=== PATIENT | female | born 1965 | race Caucasian/White ===

== ENCOUNTER 2017-12-13 05:29 | Inpatient (IN) | payer OTHER ==
[2017-12-13] VITALS (11 sets, daily range): BP systolic 110–140; BP diastolic 46–69
[~2017-12-13] VITALS: Ht 170.2 cm; Wt 147.4 kg
--- NOTE | ~2017-12-13 | O ---
[facility] [place] [address] OPERATIVE REPORT Name: GABBIE QUEZADA Room #: 418-P [facility] IN M.R.#: [id number] Admission: 12/13/17 Attend Phys: Amita Hogan MD, Discharge: Date of : 61 Report #: [id number] THIS REPORT FOR: //name// CC: Miryam Hogan DATE OF SERVICE: 12/13/2017 PREOPERATIVE DIAGNOSES: 1. Morbid obesity. 2. Body mass index of 51.37. 3. Essential hypertension. 4. History of hyperglycemia. 5. Snoring disorder. 6. Lumbago. 7. Bilateral lower extremity joint pain with arthritis. POSTOPERATIVE DIAGNOSES: 1. Morbid obesity. 2. Body mass index of 51.37. 3. Essential hypertension. 4. History of hyperglycemia. 5. Snoring disorder. 6. Lumbago. 7. Bilateral lower extremity joint pain with arthritis. 8. Type 3 paraesophageal hernia. PROCEDURES PERFORMED: 1. Laparoscopic sleeve gastrectomy. 2. Laparoscopic suture repair of a type 3 paraesophageal hernia with cruroplasty. 3. A thorough esophagogastroduodenoscopy (EGD). SURGEON: Amita Hogan M.D. VOCATIONAL EDUCATION TEACHER: Yong Hernandes M.D. ANESTHESIA: General endotracheal anesthesia. ESTIMATED BLOOD LOSS: Minimal (less than 5 mL). COMPLICATIONS: None appreciated. SPECIMENS: Gastric sleeve resection specimen to pathology. INDICATIONS: The patient is a 52-year-old morbidly obese female who [facility] [address] [place] [address] OPERATIVE REPORT Name: GABBIE QUEZADA Room #: 418-P [facility] IN .R.#: [id number] Admission: 12/13/17 Attend Phys: Amita Hogan MD, Discharge: Date of : 61 Report #: [id number] has been seen for her desire for weight loss surgery as she has had a long history of obesity with numerous weight loss attempts, all to no avail. The patient has greater than 150 pounds over her ideal body weight, with comorbid conditions of high blood pressure, GERD, low back pain, lower extremity joint pain, snoring disorder with likely sleep apnea and chronic fatigue as well as arthritis of the knees and significant immobility that are all directly related to her obesity. The patient has been seen by her primary care physician as well as by psychology and the dietitians, who have all cleared her for bariatric surgery as well as indicating that it is medically necessary for long-term weight loss and assistance with her comorbid conditions. The patient has undergone physician-directed diet and exercise attempts under my direction for the past several months, with no substantial weight loss thus far. As such, indication was for the above-mentioned procedures with intraoperative findings of the superior one-third of her stomach, including the gastroesophageal juncture and the fundus of the stomach within the distal mediastinum, consistent with a type 3 paraesophageal hernia which required definitive management as well. DESCRIPTION OF PROCEDURE: After explaining the risks, benefits and alternatives of the procedure with the patient in detail in the preoperative holding area and obtaining written consent, the patient was brought to the operating room and placed supine on the operating room table. After conducting a thorough timeout procedure, verifying correct patient and procedure, the patient was given general endotracheal anesthesia. Once adequate anesthesia was obtained, her SCDs were hooked up to pneumatic compression device and she was given a preoperative dose of antibiotics in line with the SCIP protocol. The patient's abdomen was now prepped and draped in the standard surgical sterile fashion after positioning her in the low lithotomy position with her legs in the Yellofin stirrups. I began the procedure by performing a thorough EGD. The Fareye upper endoscope was used to intubate the oropharynx. This was traversed down into the esophagus. The scope was advanced into the second portion of the duodenum, where slow careful withdrawal of the scope showed no evidence of duodenitis, gastritis, esophagitis, mass lesions or ulcerations. Retroflexion view of the scope within the gastric lumen showed a hiatal hernia. The scope was straightened out with its tip at the level of pylorus, where it was taped into position. The stomach was fully desufflated and I proceeded to enter the operative field sterilely. A 5 mL of 0.5% Marcaine with epinephrine were used to anesthetize the skin 3 cm cephalad to the umbilicus and 1 cm to the patient's left. A #15 bladed scalpel was used to create a small skin renay at this location. A 5-mm Visiport was placed over 0-degree 5-mm laparoscope and was introduced through this incision site. Once intra-abdominal placement was verified visually, the obturator for the trocar and laparoscope were both removed and the abdomen was insufflated to 15 mmHg using carbon dioxide gas. The laparoscope was changed to a 5-mm 30-degree laparoscope, which was reintroduced through this trocar. The entire abdomen was evaluated to ensure no injury upon entry. I now proceeded to place additional working trocars. A [address] [address] OPERATIVE REPORT Name: GABBIE QUEZADA Room #: 418-P [facility] IN Patty#: [id number] Admission: 12/13/17 Attend Phys: Amita Hogan MD, Discharge: Date of : 61 Report #: [id number] 15-mm port was placed in the right upper abdomen approximately 7 cm cephalad to my initially placed port and 5 cm to the patient's right; an additional 5-mm port was placed in the left mid abdomen and midclavicular line, 5 cm lateral to my initial port and a final 5-mm port was placed in the extreme left lateral flank. All three additional trocars were placed under direct vision after anesthetizing the skin at each location with 5 mL of 0.5% Marcaine with epinephrine, and I had created appropriately sized skin nicks using #15 bladed scalpel. I now anesthetized the skin in the subxiphoid location using 5 mL of 0.5% Marcaine with epinephrine and created a small skin renay at that location as well. I then used the 5 mm obturator to penetrate the fascia at that level and maneuvered the Aide liver retractor through this defect, where it was positioned up under the left lobe of the liver and was held up against the posterior aspect of the anterior abdominal wall. We now had complete access to the stomach and hiatal regions and saw evidence of a type 3 paraesophageal hernia with the gastroesophageal juncture and the fundus of the stomach contained within the distal mediastinum. As such, it was going to be necessary to perform definitive management of this and the left midclavicular 5-mm port was upsized to a 12-mm port under direct vision after extending the incision appropriately. The patient was now placed in steep reverse Trendelenburg position. We started our dissection after identifying our landmarks. The vein of Anderson was identified overlying the pylorus. I measured 4 cm proximal to this location and began taking down the short gastric arteries from this location all the way up to the greater curvature of the stomach using Harmonic scalpel for hemostasis. Once we arrived upon the left dorinda, we applied inferior traction on the stomach to reduce the paraesophageal hernia and continued taking down short gastric arteries until we identified the base of the left dorinda, which I dissected anteriorly up. I now elevated the stomach anteriorly and opened the pars flaccida using Harmonic scalpel to identify the base of the right dorinda. I dissected posteriorly at this juncture as well and carried out an extensive mediastinal dissection, carrying the dissection as far cephalad as possible in the mediastinum to take down all adhesions in the mediastinum that would attempt to cause retraction of the stomach and esophageal tissues back up in the mediastinum inappropriately. Now that I had completed my dissection, the stomach was elevated and posterior gastric attachments were taken down, ensuring that we were well away from the posterior aspect of the stomach as well as the anterior aspect of the pancreas, so as to prevent injury from thermal spread. Now that I had 2 cm of intra-abdominal esophagus, I proceeded to repair the type 3 paraesophageal hernia using several sutures of 0 Surgidac on the EndoStitch device. Two sutures were placed posteriorly and one was placed anteriorly so as not to distort the angle of entry into the abdomen too substantially. This brought the crura closed to where it was snug, but not tight to the esophagus. This recreated the slit valve aspect of the lower esophageal sphincter complex. Photodocumentation of this repair was taken and provided to the patient and the permanent medical record. [facility] [address] [place] [address] OPERATIVE REPORT Name: GABBIE QUEZADA Room #: 418-P [facility] IN M.R.#: [id number] Admission: 12/13/17 Attend Phys: Amita Hogan MD, Discharge: Date of : 61 Report #: [id number] Now that we had repaired the hiatal defect from the paraesophageal hernia and had fully mobilized the stomach, we started the sleeve gastrectomy portion of the procedure. The EGD scope was positioned to run along the lesser curvature of the stomach. The Albee 60-mm stapler with a black load utilizing Enciso's Jennifer-Strip buttressing material placed over it, it was entered into the abdomen through the 15 mm port. This first firing started at the location of 4 cm proximal to the pylorus and was fired right along, but not extremely tight to the scope, so as not to cause stricturing, especially at the incisura. An additional firing of another black load, again utilizing Enciso's Jennifer-Strip buttressing material, was carried out following the scope as a 34-Upper Sorbian bougie. Five additional firings of green loads, all utilizing Enciso's Jennifer-Strip buttressing material, were carried out following the scope as a bougie all the way up to the left dorinda until the stomach was completely transected. This left an excellently oriented sleeve of gastric remnant with complete hemostasis. There was only slight oozing at the most distal aspect of the staple line by the first firing of the stapler and as such, a laparoscopic clip healthcare network consultant was used to maintain hemostasis to this location. The resection specimen was placed in the right upper quadrant for future retrieval and the staple line was evaluated again. There was no twisting to the sleeve whatsoever and we had hemostasis. A 10 mL of Tisseel on the [employer]ient Technologieslos[employer]ay device was now used to coat the entirety of the staple line with fibrin glue. While this was drying, the resection specimen was grasped and removed out of abdomen through the 15-mm trocar under direct vision. I then placed fascial closing sutures around the 15 mm and 12 mm fascial incisions using 0 PDS suture on a Mark-Porter needle under direct vision. Neither were tied down at this juncture, but they were tagged with hemostats and the trocars were placed under direct vision. Now that the Tisseel was dry, normal saline was instilled into the upper abdomen and the EGD scope was reactivated and used to slowly withdraw to evaluate the staple line from the inside to ensure hemostasis and we saw no bleeding whatsoever. Upon doing so, we were able to gently insufflate the sleeved stomach, which was held under normal saline and no bubbles were seen, thereby signifying a negative leak test. The scope was used to desufflate the stomach. It was removed and passed off the field and I reentered the operative field once again. Normal saline was suctioned out of the abdomen and it ran clear throughout with no bleeding whatsoever. The Aide liver retractor was now removed under direct vision. The liver was healthy and uninjured. The 0 PDS sutures were now tied down under direct vision after removing the respective trocars and reducing the insufflation pressure to 5 mmHg. This was done under direct vision to ensure I did not catch a loop of bowel or omentum in my suture repair. The abdomen was now fully desufflated. All remaining trocars were removed under direct vision. A 4-0 Monocryl was used in a standard subcuticular fashion for all skin incisions and Dermabond glue was applied to all skin wounds. The corner of the resection specimen had been removed. It was trimmed away and normal saline was passively instilled into the resection specimen, [address] [address] OPERATIVE REPORT Name: PILARGABBIE OROZCO MICHELLE Room #: 418-P [facility] IN M.R.#: [id number] Admission: 12/13/17 Attend Phys: Amita Hogan MD, Discharge: Date of : 61 Report #: [id number] yielding 1500 mL in the resection specimen itself. At the end of the procedure, all instrument, needle and sponge counts were correct. The patient tolerated the procedure without incident, was awakened in the operating room and transitioned to the recovery room in stable condition, with no apparent complications. <ELECTRONICALLY SIGNED> By: Amita Hogan MD, FACS 12/13/17 1320 [id number] [id number] Amita Hogan MD, FACS /nt
--- NOTE | ~2017-12-13 | S ---
[facility] [place] [address] SURGICAL PATH RPT PROCEDURE Name: GABBIE QUEZADA Room #: 418-P ADM IN M.R.#: [id number] Admission: 12/13/17 Date of : 61 Discharge: Report #: [id number] Path Case #: [id number] PATHOLOGY REPORT COLLECTION DATE: 12/13/2017 RECEIVED DATE: 12/13/2017 SUBMITTING PHYS: Dr. Amita Hogan OTHER PHYS: Dr. Miryam Frye SPECIMEN(S) RECEIVED: A.Gastric sleeve * * * * * * * * * * * * FINAL DIAGNOSIS: Gastric sleeve, partial sleeve gastrectomy: - Mild chronic inflammation. - Negative for intestinal metaplasia or atrophy. (IUV:mgr; 12/14/2017) PATHOLOGIST: Samira Fitzpatrick M.D. REPORT ELECTRONICALLY SIGNED BY: Samira Fitzpatrick M.D. DATE/TIME: 12/14/2017 14:51 * * * * * * * * * * * * GROSS PATHOLOGY: The specimen is received in formalin, labeled "Gabbie Quezada, gastric sleeve". Received is a partial gastrectomy specimen with a stapled margin of resection measuring 19.4 x 6.0 cm in greatest dimensions. The serosal surface is pink-pandey, smooth, and shiny. Opening the specimen reveals a pink-pandey pandey mucosa displaying is normal architectural folds. No polyps or mass lesions identified. The specimen is submitted representatively in cassettes A1-A3. (SDY; 12/13/2017) CLINICAL HISTORY: Morbid obesity INITIAL CPT CODE(S): A; 19560 Professional services performed by [facility] at [facility] [address] [facility] [place] [address] Technical services performed by [facility] at [address] [place] [id number]. [facility] [address] [place] [address] SURGICAL PATH RPT PROCEDURE Name: GABBIE QUEZADA MICHELLE Room #: 418-P ADM IN M.R.#: [id number] Admission: 12/13/17 Date of : 61 Discharge: Report #: [id number] Path Case #: [id number] [facility] [address] [address] PHONE: [phone] DIRECTOR: Lasha Scott M.D. * * * END OF REPORT * * *
[~2017-12-13 05:29] MED LIST: ASPIR 8181 MG PO; FLEXERIL PO; HYDROCODONE-AP1 EAC6 PO; IBUPROFEN 800800 M1 PO; LASIX 40 MG TAB40 M2 PO; LISINOPRIL20 MG PO; MULTIVITAMINS1 EAC7 PO; POTASSIUM20 PO; PROTONIX40 M1 PO; SYNTHROID175 MCG PO; TRAMADOL 50 MG50 MG PO; VITAMIN B-12500 MCG PO; WELLBUTRIN SR150 MG PO
[2017-12-13] MEDS ORDERED: HYDROCODONE-ACE15 ML PO (10:06)
[2017-12-13] MEDS ORDERED: ZOFRAN ODT4 MG DISSOLVE (10:06)
[2017-12-14 03:00] VITALS: BP 13/63; BP 133/63
[2017-12-14 04:38] LABS: HEMATOCRIT 42.3 % (37.0-47.0); HEMOGLOBIN 14.1 gm/dL (12.0-15.0); MCH 30.9 pg (26.0-34.0); MCHC 33.5 g/dL (28.0-37.0); MCV 92.3 fL (80.0-100.0); RBC 4.58 mil/uL (4.20-5.00); RDW 12.9 % (10.5-14.5); WBC 12.2 thou/uL (4.0-11.0)
[2017-12-14 04:44] LABS: CALCIUM 8.4 mg/dL (8.5-10.1); CREATININE 0.8 mg/dL (0.6-1.0); POTASSIUM 3.8 mmol/L (3.5-5.1)
[2017-12-14 08:00] VITALS: BP 135/64
[2017-12-14 14:37] VITALS: BP 135/64
== END 2017-12-14 16:10 | disposition home or self-care (01) | DRG 621 ==
LOC: TBA 05:29 → 4E 05:29 → PRE 07:04 → 4E 11:34 → OR 15:41 → EDSTATUS 15:42 → ENTRNSPT 12-14 15:50 → 4E 12-14 16:10
PROVIDERS: Surgery
DX: E66.01 Morbid (severe) obesity due to excess calories (principal); K44.9 Diaphragmatic hernia without obstruction or gangrene; I10 Essential (primary) hypertension; R06.83 Snoring; M54.5 Low back pain; M19.90 Unspecified osteoarthritis, unspecified site; Z68.43 Body mass index [BMI] 50.0-59.9, adult; K21.9 Gastro-esophageal reflux disease without esophagitis
CPT/HCPCS: 10183; 50010; 50101; 50222; 50249; 50386; 50555; 50558; 50740; 50962; 51437; 51489; 52182; 52265; 53307; 53311; 54022; 54118; 55245; 55326; 56462; 56525; 56526; 57092; 62110; 62900; 70005